=== PATIENT | male | born 1980 | race Caucasian/White ===

== ENCOUNTER 2024-11-06 12:56 | Emergency (ER) | payer SELFPAY ==
[2024-11-06 13:09] VITALS: BP 158/85; PULSE 75; RESP 16; TEMP 37; O2SAT 98; BMI 31.5
--- NOTE | 2024-11-06 13:44 | W.ED.EXTPRO ---
HPI - Extremity Problem General: Chief complaint: Extremity Injury, Upper Stated complaint: pain in upper lft arm Time Seen by Provider: 11/06/24 13:44 History of Present Illness: Patient presents with left bicep pain and deformity. He reports that he was lifting a grill when he felt a pop in his bicep around the elbow. He now has an abnormal bulge up in his bicep and is concerned about bicep tendon rupture. Related Data Home Medications ?Medication ?Instructions ?Recorded ?Confirmed acetaminophen 325 mg tablet 325 mg PO QID 11/06/24 11/06/24 Previous Rx's ?Medication ?Instructions ?Recorded hydrocodone 5 mg-acetaminophen 325 1 tab PO Q8H PRN pain #14 tabs 11/06/24 mg tablet naproxen 500 mg tablet 500 mg PO Q12H PRN pain #30 tabs 11/06/24 Allergies Allergy/AdvReac Type Severity Reaction Status Date / Time No Known Allergies Allergy Verified 11/06/24 13:12 Review of Systems General: Reports: 10 or more systems reviewed and unremarkable except in HPI and below Musc: Reports: other (Please see HPI) Physical Exam Const: COMMON NORMALS: no acute distress, patient oriented x3, alert and well nourished Resp: COMMON NORMALS: normal respiratory effort and clear to auscultation bilaterally AUSCULTATION: clear to auscultation bilaterally Cardio: COMMON NORMALS: regular rate and regular rhythm RATE: regular rate RHYTHM: regular rhythm GI: COMMON NORMALS: Soft to palpation and non-tender PALPATION: Yes Soft to palpation Extremity: NARRATIVE EXTREMITY EXAM: Tommie deformity left bicep consistent with bicep tendon rupture. Limited range of motion Neuro: COMMON NORMALS: patient oriented x3 SENSORIUM/ORIENTATION: Yes alert Psych: COMMON NORMALS: mental status grossly normal, Normal thought process present, cooperative, normal affect and speech normal SPEECH: Yes normal speech THOUGHT PROCESS: Normal thought process present Course Vital Signs: Vital signs: Vital Signs Temperature 98.6 F 11/06/24 13:09 Pulse Rate 75 11/06/24 13:09 Respiratory Rate 16 11/06/24 13:09 Blood Pressure 158/85 11/06/24 13:09 Pulse Oximetry 98 11/06/24 13:09 Oxygen Delivery Me thod Room Air 11/06/24 13:09 MDM - Extremity (Nontraumatic) Medical Decision Making Patient x-rays were reviewed and is negative. Patient's physical exam is consistent with bicep tendon rupture. Patient placed in sling, provided pain medication. Recommend follow-up with Ortho. Lab Data Radiology Impressions Elbow X-Ray 11/06/24 13:57 IMPRESSION: No acute findings. All radiology interpretation(s) finalized by discharge Discharge Plan Discharge Patient Disposition: Home Clinical Impression: Biceps muscle tear Condition: Stable Prescriptions: New hydrocodone-acetaminophen 5-325 mg tablet 1 tab PO Q8H PRN (Reason: pain) Qty: 14 0RF naproxen 500 mg tablet 500 mg PO Q12H PRN (Reason: pain) Qty: 30 0RF No Action acetaminophen 325 mg Tablet 325 mg PO QID Discharge Orders: Discharge ED (Routine); Ordered 11/06/24 Ordered By: Alirio Coreas Referrals: Slim Ramos MD [Physician, Orthopedics] Baldo Stern MD [Family Provider, Family Practice] Discharge Diet: Usual diet Discharge Activity: Limit activity as instructed Patient Instructions: Tendon Rupture (ED), Opioid Safety, Pain Management Activity Restrictions/Additional Instructions: Please wear sling until cleared by orthopedic surgery. Please call Dr. Ramos office in the morning to arrange for appointment for further outpatient evaluation. Ice for 10 to 15 minutes at a time 3-4 times daily. Hydrocodone every 8-12 hours as needed. Please take the naproxen twice daily to help with pain and inflammation until seen by Dr. Ramos. Print Language: Cymro Coding Level of Care Code ED Visual Basic Developer for Joyce Lord
--- NOTE | 2024-11-06 13:57 | XRR_ITS ---
PROCEDURE INFORMATION: Exam: XR Left Elbow Exam date and time: 11/06/2024 2:05 PM Age: 43 years old Clinical indication: Injury or trauma; Lt elbow/upper arm pain after lifting injury; Tommie deformity noted TECHNIQUE: Imaging protocol: Radiologic exam of the left elbow. Views: 1 or 2 views. COMPARISON: No relevant prior studies available. FINDINGS: Bones/joints: Alignment is normal. No acute fracture. Joint spaces are preserved. No joint effusion. Soft tissues: Visible soft tissues are unremarkable. XR/XR elbow LT 2V [id number] IMPRESSION: No acute findings.
[2024-11-06] MEDS: HYDROcodone-acetaminophen 5-325 mg Tablet 1 TAB PO (14:41)
== END 2024-11-06 15:43 | disposition home or self-care (01) ==
PROVIDERS: Emergency Provider Student in an Organized Health Care Education/Training Program; Family Provider Family Medicine
DX: S46.212A Strain of muscle, fascia and tendon of other parts of biceps, left arm, initial encounter (principal); X50.0XXA Overexertion from strenuous movement or load, initial encounter
CPT/HCPCS: 73070; 99283; J9999